=== PATIENT | female | born 1960 | race Hispanic/Latino ===

== ENCOUNTER 2022-04-02 10:41 | Day surgery (SDC) | payer MEDICARE ==
[2022-03-29 16:29] LABS: HEMATOCRIT 36.4 % (36-48); MEAN CORPUSCULAR HEMOGLOBIN 32.1 pg (27.0-33.0); MEAN CORPUSCULAR VOLUME 97.3 fL (79-99); RED BLOOD CELL COUNT(AUTO) 3.74 MIL/uL (4.00-5.50); RED CELL DISTRIBUTION WIDTH 14.5 % (11.0-15.5); WHITE BLOOD COUNT (AUTO) 4.5 K/uL (4.8-10.8)
[2022-03-29 16:40] VITALS: BP 174/91
[2022-03-29 16:42] LABS: INR 0.93 (0.85-1.15); PROTHROMBIN TIME 10.2 SEC (9.6-11.6)
[2022-03-29 16:44] LABS: PARTIAL THROMBOPLASTIN TIME 30.2 SEC (26.3-35.5)
[2022-03-29 16:50] LABS: CREATININE 3.1 mg/dL (0.5-1.5); POTASSIUM 3.9 mmol/L (3.5-5.1)
[2022-04-02] VITALS (17 sets, daily range): BP systolic 143–166; BP diastolic 58–76
[~2022-04-02] VITALS: Ht 160 cm; Wt 68.3 kg
[~2022-04-02 10:41] MED LIST: AMLO-257 PO; ATEN50TA PO; ATOR20TA65 PO; FURO20TA4 PO; HYDR100T27 PO; LACT10SO5 PO; SODI325T PO; TELM80TA10 PO
[2022-04-02] MEDS ORDERED: CEFAZOLIN SODIUM 1 GM VIAL ONE (11:09)
[2022-04-02] MEDS ORDERED: CLINDAMYCIN IVPB 900MG/50ML 50 ML IV ONE ×2 (11:21→12:20)
[2022-04-02] MEDS ORDERED: 0.9% NACL 500ML IV.SOLN 500 ML IV ONE (12:00)
[2022-04-02] MEDS ORDERED: MIDAZOLAM HCL 1 MG/ML 2ML VIAL ONE (12:18)
[2022-04-02] MEDS ORDERED: PROPOFOL 10 MG/ML 20ML VIAL IV ONE (12:21)
[2022-04-02] MEDS ORDERED: GLYCOPYRROLATE 1 MG/5 ML SYRINGE ONE (12:21)
[2022-04-02] MEDS ORDERED: FENTANYL CITRATE PF 50 MCG/1 ML 2ML VIAL ONE (12:22)
[2022-04-02] MEDS ORDERED: ROCURONIUM 10MG/1ML SYR 10 MG/ML ML ONE (12:22)
[2022-04-02] MEDS ORDERED: HEPARIN 10,000 UNIT/10ML (1,000 UNIT/ML) VIAL ONE (13:04)
[2022-04-02] MEDS ORDERED: INSU100V37 SQ (13:23)
[2022-04-02] MEDS ORDERED: BUPIVACAINE/PF 0.5% 30ML VIAL ONE (13:27)
[2022-04-02] MEDS ORDERED: LIDOCAINE HCL 1% 20 ML VIAL ONE (13:27)
[2022-04-02] MEDS ORDERED: NEOSTIGMINE 5MG/5ML SYR IV ONE (13:31)
== END 2022-04-02 16:20 | disposition home or self-care (01) ==
LOC: DAH 10:41
PROVIDERS: ATTEND Thoracic Surgery (Cardiothoracic Vascular Surgery)
DX: E11.22 Type 2 diabetes mellitus with diabetic chronic kidney disease (principal); I12.0 Hypertensive chronic kidney disease with stage 5 chronic kidney disease or end stage renal disease; N18.6 End stage renal disease; M19.90 Unspecified osteoarthritis, unspecified site; Z99.2 Dependence on renal dialysis; Z98.890 Other specified postprocedural states; Z90.49 Acquired absence of other specified parts of digestive tract; Z88.0 Allergy status to penicillin; Z88.8 Allergy status to other drugs, medicaments and biological substances
CPT/HCPCS: 80048; 85027; 85610; 85730; 86850 ×2; 86900 ×2; 86901 ×2; 87426; 36415 ×2; 71045; 93005; 36821; 84132; 82948 ×2; A6260; A6207; J7030; A4452; J7040; J3010; J3490 ×4; J2710; J1644 ×2; J2250; J2704; G0168; A4649; C1713 ×2; A4930; A4215; A4223; A4221; A4663; J0690